=== PATIENT | female | born 1970 | race Two or more races ===

== ENCOUNTER 2016-04-22 07:53 | Day surgery (SDC) | payer OTHER ==
--- NOTE | 2016-04-21 15:53 | HP ---
TRACEY CUMMINGS [id number] DATE OF : 1970 HISTORY OF PRESENT ILLNESS: This is a 45-year-old female, last period the middle of March, who was referred for bilateral lower abdominal pain of approximately two year's duration, associated with rectal pressure. She was seen in the emergency room in December for similar issues. The ultrasound showed a small fibroid uterus and a follicular cyst. She is currently admitted for a diagnostic laparoscopy. She was advised also to see a specialty transformer assembler for possibility of irritable bowel syndrome, however, she did not go for that consultation at this time. OB HISTORY: The patient is a G-3, P-3, 0-0-3. Three normal vaginal deliveries. 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 STDs negative. Her last Pap smear did show ASCUS and she did have a colposcopy which showed inflammatory tissue. Also includes a history of pelvic inflammatory disease as a young woman. PAST MEDICAL HISTORY: Positive for hypothyroidism. She takes levothyroxine 100 mcg. ALLERGIES: She has no allergies. PAST SURGICAL HISTORY: Negative. FAMILY HISTORY: Negative. REVIEW OF SYSTEMS: Just chronic pelvic pain. PHYSICAL EXAMINATION: GENERAL: A healthy female in no acute distress. HEENT: Normal. NECK: Supple. Thyroid not palpable. BREASTS: Soft. No masses. HEART: Regular sinus rhythm. No murmurs. LUNGS: Clear. ABDOMEN: Benign. PELVIC: External genitalia healthy. Vagina healthy. Cervix was pink and nontender. Uterus was normal size, nontender and retroverted. Adnexa negative. IMPRESSION: Chronic pelvic pain. Ultrasound performed in January showed the uterus to be 5 cm x 5 cm x 4 cm and retroverted. The right ovary was normal. The left ovary was normal, with a tiny follicular cyst measuring 1 cm x 0.6 cm. PLAN: A diagnostic laparoscopy. I did discuss making an additional incision should there be a larger cyst and through that incision aspiration could be performed. The risks, reasons, complications, living will and alternatives discussed, all in layperson's terms, and all questions were answered.
[2016-04-22] MEDS ORDERED: LACTATED RINGERS 1,000 ML ONE (08:07)
[2016-04-22] MEDS ORDERED: IV START KIT ONE (08:08)
[2016-04-22] MEDS ORDERED: LIDOCAINE 1% 2 ML VIAL ID PRN ×2 (08:28→09:00)
[2016-04-22] MEDS ORDERED: LACTATED RINGERS 1,000 ML IV SCH ×3 (08:30→10:00)
[2016-04-22] MEDS ORDERED: LIDOCAINE 1% (PRES FREE) 30 ML VIAL ONE (08:46)
[2016-04-22] MEDS ORDERED: FENTANYL 100 MCG/2 ML VIAL ONE (09:16)
[2016-04-22] MEDS ORDERED: SODIUM CHLORIDE 0.9% FLUSH 10 ML ONE (09:20)
[2016-04-22] MEDS ORDERED: ONDANSETRON 4 MG/2ML 2 ML VIAL IV PRN (09:48)
[2016-04-22] MEDS ORDERED: MEPERIDINE 25 MG/ML SYRINGE IV PRN (09:48)
[2016-04-22] MEDS ORDERED: LABETALOL HCL 5 MG/ML 20ML VIAL IV PRN (09:48)
[2016-04-22] MEDS ORDERED: MORPHINE SULFATE 4 MG/ML SYRINGE IV PRN (09:48)
[2016-04-22] MEDS ORDERED: ATROPINE SULFATE 0.4 MG/1 ML VIAL IV PRN (09:48)
[2016-04-22] MEDS ORDERED: PROMETHAZINE HCL 25 MG/ML VIAL IM PRN (09:48)
[2016-04-22] MEDS ORDERED: NALOXONE HCL 0.4 MG/ML VIAL IV PRN (09:48)
[2016-04-22] MEDS ORDERED: ROCURONIUM BROMIDE 10 MG/ML DOSE IV ONE (09:49)
[2016-04-22] MEDS ORDERED: KETOROLAC TROMETHAMINE 30 MG/ML 1 ML VIAL ONE (09:49)
[2016-04-22] MEDS ORDERED: METOCLOPRAMIDE HCL 5 MG/ML 2ML VIAL ONE (09:49)
[2016-04-22] MEDS ORDERED: PROPOFOL 20 ML IV ONE (09:49)
[2016-04-22] MEDS ORDERED: ONDANSETRON 4 MG/2ML 2 ML VIAL ONE ×2 (09:49→12:02)
[2016-04-22] MEDS ORDERED: MORPHINE SULFATE 10 MG/ML SYRINGE ONE (09:50)
--- NOTE | 2016-04-22 10:35 | PCMBPN ---
Brief Post Op Note: Date of Procedure: 04/22/16 Start Time: Preoperative Diagnosis: 1. chronic pelvic pain Postoperative Diagnosis: 1. chronic pelvic pain, subserosal myoma, endometriosis, bilateral hydrosalpynx or tortuous fallopian tubes, left paratubal cyst Procedure: diagnostic laparoscopy Surgeon: Ziyad Simental Assist: Anesthesia: ms yuan, general anesthesia Findings: external genitalia healthy, cervix pink, uterus top normal size and retroverted, adnexa negative, uterus sounded to 9cm, laparoscopy: both ovaries normal, old white/morgan scaring in left cul de sac suggestive of old endometriosis, tortuous fallopian tubes or bilateral hydrosalpynx, left paratubal cyst (1cm), subserosal myoma 1-2 cm Condition: stable Complications: none IV Fluids: mLs of LR Urine Output: 120 mLs Estimated Blood Loss: less than 5 mLs Tourniquet Time: N/A Specimens: N/A Implants: Drains: N/A closure: 4-0 interrupted sutures patient tolerated procedure well and was returned to recovery room in stable condition.
[2016-04-22] MEDS ORDERED: OXYCODONE/ACETAMINOPHEN 5/325 MG TABLET PO PRN (10:37)
[2016-04-22] MEDS ORDERED: IBUPROFEN 800 MG TABLET PO PRN (10:37)
[2016-04-22] MEDS ORDERED: OXYCODONE/ACETAMINOPHEN 5/325 MG TABLET ONE (11:53)
[2016-04-22] MEDS ORDERED: ONDANSETRON 4 MG/2ML 2 ML VIAL IV ONE (12:00)
[2016-04-22] MEDS ORDERED: PROMETHAZINE HCL 25 MG/ML VIAL IM ONE (12:01)
[2016-04-22] MEDS ORDERED: PROMETHAZINE HCL 25 MG/ML VIAL ONE (12:22)
--- NOTE | 2016-04-23 00:18 | OP ---
TRACEY CUMMINGS [id number] NAME OF OPERATION: DIAGNOSTIC LAPAROSCOPY. PREOPERATIVE DIAGNOSIS: Chronic pelvic pain. POSTOPERATIVE DIAGNOSES: 1. Chronic pelvic pain. 2. Subserosal myoma. 3. Endometriosis. 4. Bilateral hydrosalpinx or tortuous Fallopian tubes. 5. Left paratubal cyst. JEWEL OLIVING MACHINE OPERATOR: Dr. Ziyad Simental ANESTHESIA: Farrah Alcaraz CRNA, general anesthesia. PROCEDURE: Diagnostic laparoscopy. DESCRIPTION OF PROCEDURE: With the patient in the supine position under general anesthesia, the vagina was prepared with betadine and the abdomen was prepared with ChloraPrep and draped in the usual manner. Exam under anesthesia after a time-out was performed showed the external genitalia healthy, vagina healthy, the uterus top normal size and retroverted and the adnexa negative. The bladder had been emptied of 120 mL of clear yellow urine prior to the pelvic examination. PROCEDURE: A duckbill speculum was inserted into the vagina gently. The anterior lip of the cervix was grasped with a single-prong tenaculum. The uterus was then sounded to 9 cm and then the uterine manipulator was inserted and the single-prong tenaculum was removed, along with the duckbill speculum. The patient was placed in a Trendelenburg position and two towel clamps were used to grasp the skin lateral to the umbilicus, and a subumbilical incision was made with a knife. A Veress needle was then inserted, tested with normal saline and found to be patent. Carbon dioxide gas was instilled, with an opening pressure of 2 mmHg until 1.8 liters of carbon dioxide gas were instilled, creating an adequate pneumoperitoneum by percussion. The Veress needle was then removed, the incision extended laterally and a laparoscopic trocar was inserted under laparoscopic visualization. The laparoscope was then hooked-up. Findings included a normal sized anteverted uterus with a subserosal myoma noted in the fundus, approximately 1-2 cm. The uterus was retroverted. Both ovaries appeared normal. There was an approximately 1 cm left paratubal cyst noted. Both Fallopian tubes appeared tortuous and/or showed evidence of hydrosalpinx. There was an old, grayish-white lesion noted in the left cul-de-sac, which appeared to be evidence of an old endometriosis. There was no active endometriosis noted. Photographs of this were taken and at this point the operation was terminated. There was complete hemostasis upon removal of the laparoscope and then the laparoscopic trocar was removed after air was expelled through the trocar sheath. The skin defect was closed with 4-0 Vicryl interrupted sutures and a total of 8 mL of 1% lidocaine with epinephrine was injected into the incision for analgesia. The vaginal instruments were removed. There was complete hemostasis, and now with sponge and instrument count reported as correct and complete hemostasis the operation was terminated. Estimated blood loss was less than 5 mL. Urine output was 120 mL by straight catheterization. The patient tolerated the procedure well and was returned to the recovery room in stable condition.
--- NOTE | 2016-04-23 00:27 | DS ---
TRACEY CUMMINGS [id number] HOSPITAL COURSE: This is a 45-year-old female admitted for chronic pelvic pain. She underwent a diagnostic laparoscopy, tolerated the procedure well, and was sent home in good condition. I advised office visit in one week's time. Activities were explained to the patient in Monegasque prior to her having anesthesia. She was sent home with analgesics and will return in one week for suture removal. FINAL DIAGNOSES: 1. Chronic pelvic pain. 2. Subserosal myoma. 3. Endometriosis. 4. Bilateral hydrosalpinx or tortuous Fallopian tubes. 5. Left paratubal cyst. LAB VALUES: She had a negative test. Her EKG was normal.
== END 2016-04-22 14:42 | disposition home or self-care (01) ==
LOC: SDC 07:53
PROVIDERS: ATTEND Obstetrics & Gynecology
PROC: 0WJJ4ZZ Inspection of Pelvic Cavity, Percutaneous Endoscopic Approach (ICD-10-PCS; principal; 2016-04-22)
DX: R10.2 Pelvic and perineal pain (principal); G89.29 Other chronic pain; D25.2 Subserosal leiomyoma of uterus; N80.0 Endometriosis of uterus; N83.8 Other noninflammatory disorders of ovary, fallopian tube and broad ligament; N70.11 Chronic salpingitis; Q50.6 Other congenital malformations of fallopian tube and broad ligament; E03.9 Hypothyroidism, unspecified
CPT/HCPCS: 49320; J3010; J2270; A9270; J2550; J2765; J1885; J2001; J2405 ×2; J7120